=== PATIENT | female | born 1960 | race Caucasian/White ===

== ENCOUNTER → 2019-06-16 16:15 | Outpatient (CLI) | payer BC, SELFPAY ==
--- NOTE | 2019-06-16 | DI.MG.S_ITS ---
BILATERAL DIGITAL SCREENING MAMMOGRAM 3D/2D WITH CAD: 06/16/2019 CLINICAL: Routine screening. Comparison is made to exams dated: 10/07/2017 mammogram, 08/29/2015 mammogram, and 02/27/2012 mammogram - [facility]. The tissue of both breasts is heterogeneously dense. This may lower the sensitivity of mammography. Current study was also evaluated with a Computer Aided Detection (CAD) system. There is a biopsy clip in the left breast. No significant masses, calcifications, or other findings are seen in either breast. There has been no significant interval change. IMPRESSION: NEGATIVE There is no mammographic evidence of malignancy. A 1 year screening mammogram is recommended. This exam was interpreted at Station ID: [id number]. NOTE: For mammograms, a report in lay terms will be sent to the patient. Approximately 15% of breast malignancies will not be visualized mammographically. In the management of a palpable breast mass, a negative mammogram must not discourage biopsy of a clinically suspicious lesion. Electronically Signed By: Curry taylor/ekaterina:06/16/2019 17:32:24 copy to: Matthew Apodaca letter sent: Normal Exam ACR BI-RADS Category 1: Negative [id number]
== END ==
PROVIDERS: Visit Provider Family Medicine
DX: Z12.31 Encounter for screening mammogram for malignant neoplasm of breast (principal)
CPT/HCPCS: 77063; 77067

== ENCOUNTER → 2019-06-23 12:43 | Outpatient (CLI) | payer BC, SELFPAY | PROVIDERS: Referring Provider Physician Assistant Medical | DX: M85.852 Other specified disorders of bone density and structure, left thigh (principal); Z78.0 Asymptomatic menopausal state | CPT/HCPCS: 77080 ==

== ENCOUNTER 2019-09-01 10:30 | Outpatient (RCR) | payer BC, SELFPAY ==
--- NOTE | 2019-07-21 16:33 | PT.OIE ---
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) Other symptoms and signs involving the musculoskeletal system (07/21/19) Past Medical History (Last Updated 06/16/19 @ 14:56 by Zack Drew MD) DANIA (stress urinary incontinence, female) (Acute) Urge incontinence of urine (Acute) Past Surgical History (Last Reviewed 06/16/19 @ 14:53 by Zack Drew MD) History of third molar tooth extraction Status post dilation and curettage Status post knee surgery Status post knee surgery Status post ovarian cystectomy Visit Care Team Role Provider Type Zack Drew MD Attending Provider Physician Primary Care Provider Specialty: HAIRSPRING I INSPECTOR Address: [address] [place] [address] Email: [email or web address] Physical Therapy Initial Evaluation PT-OP-A Visit Information Start: 07/20/19 18:05 Freq: Status: Active Protocol: Document 07/21/19 08:58 LRN (Rec: 07/21/19 09:58 LRN [id number]) Out-Patient Physical Therapy Visit Information Visit Information Visit Type Initial Evaluation Visit Note I/S limited to 7 visits (6 allowed after today) Visit Start Time 08:59 Visit Stop Time 09:56 Total Visit Minutes 57 Visit Number 1 Number of PAINTER SPRAY Visits 0 Evaluation Information Evaluation Date 07/21/19 Precautions Precautions Allergic to something on tape, possible latex allergy. Planned R TKA 08/19/19 Hypothyroid PT-OP-B Current Condition Start: 07/20/19 18:05 Freq: Status: Active Protocol: Document 07/21/19 08:58 LRN (Rec: 07/21/19 09:58 LRN [id number]) Current Condition History of Current Condition Onset Date ~2 yrs ago Current Complaints Urgency, can't hold. Worst upon waking, noticed it more w /sitting work. History of Current Condition Pt being referred for stress incontinence. Pt reports that she can't make it to [place] comfortably and must stop 1-2 times to use the bathroom. Flying to [place] in a private plane, she has to make 2 stops to get there. She is now taking Oxybutynin (5mg) and finds it is helpful. Pt reports having a chronic cough . Future Testing and Treatments Planned Urine check 07/23/19 for planned R TKA surgery. Developmental History Developmental History Was working [employer] and noticed increased urinary symptoms at that time. Was doing more sitting. Not retired or working at this time. Pt has had 2 children over 20 years ago. Her first child resulted in vaginal tearing and the second child was delivered 1 week early without full release of placenta; therefore she had a D&C 6 weeks after delivery. Her 1st child was 9#10oz, 2nd child 8#14 oz. Treatment Goals Patient/Caregiver Goals Pt goal is not not have urgency and to be able to control her continence with the urgency. Prior Functional Status Baseline Function- ADL's Independent Baseline Function- Mobility Independent Baseline Function- Other Could travel 1.5 hrs comfortably. Waking 0-1 time at nighttime and was able to maintain continence upon waking. Current Functional Impairments (Reported) Functional Limitations- ADL's Travelling 30-40 minutes max prior to urgency. At home urinates every hr. Functional Limitations- Other Can comfortably travel 30-40 minutes before needing to urinate. Unable to maintain continence with a strong urge. Waking 2x in middle of the night without medication, with meds not waking at nighttime. With medication, upon waking doesn't have problem getting to bathroom but has urge. Personal Factors Other Personal Factors That May Effect Surgery for R TKA 08/19/19 Therapy/Recovery scheduled. PT-OP-C Subjective Start: 07/20/19 18:05 Freq: Status: Active Protocol: Document 07/21/19 08:58 LRN (Rec: 07/21/19 09:58 LRN [id number]) OP-PT Subjective Patient Comments Patient Comments States she is having a R TKA surgery 08/19/19 at [facility]. Patient Questionnaires Pelvic Pain and Urgency/Frequency Patient Symptom Scale Pelvic Pain Score 12 OP-PT Pain Assessment Comments Pain Comments No pain. PT-OP-I Pelvic Floor Start: 07/20/19 18:05 Freq: Status: Active Protocol: Document 07/21/19 08:58 LRN (Rec: 07/21/19 09:58 LRN [id number]) Pelvic Floor Assessment Urine Pelvic Floor Surgery No Urinary Symptoms Urge Sensation,Hesitancy, Incomplete Emptying Leakage Size Large Leakage Cause Cough,Sneeze,Urge Leaks Per Day 2 Voiding Frequency 7 Nocturia 0 Pads Used In 24 Hours 1 Bowel Bowel Symptoms Constipation Other Bowel Symptoms Constipation with Oxybutynin. Eliminates 1x/day or every other day with medication ( previously eliminated 1-2x/day ). Bowel Movement Frequency 1 Pelvic Clock Pelvic Clock 12-3 Atrophy Pelvic Clock 3-6 Atrophy Pelvic Clock 6-9 Atrophy Pelvic Clock 9-12 Atrophy Prolapse Cystocele Grade 2 Rectocele Grade 2 Prolapse Comments Assessed in supine hooklie position. Perineal Descent Resting Absent Bearing Present Contraction Ability Voluntary Contraction Absent Voluntary Relaxation Absent Manual Muscle Testing Left 1 Manual Muscle Testing Right 0 Manual Muscle Testing Anterior 0 Manual Muscle Testing Posterior 0 Muscle Endurance (Seconds) 0 Number of Quick Contractions In 10 0 Seconds Comments Pelvic Floor Comments Pt uses her accessory muscles (gluteal and abdominal) to try and initiate a PF contraction . PT-OP-J Posture/Palpation/Skin Start: 07/20/19 18:05 Freq: Status: Active Protocol: Document 07/21/19 08:58 LRN (Rec: 07/21/19 09:58 LRN [id number]) Posture Evaluation Position Standing Evaluation View All positions Head/C-Spine Posture Forward Head T-Spine Posture Flattened L-Spine Posture Increased Lordosis Scapula Posture (L) Elevated Pelvis Posture Anteriorly Tilted Knee Posture (L) Genu Valgus,(R) Genu Valgus PT-OP-K Range of Motion Start: 07/20/19 18:05 Freq: Status: Active Protocol: Document 07/21/19 08:58 LRN (Rec: 07/21/19 09:58 LRN [id number]) Lumbar Spine Range of Motion Lumbar Spine Active Degrees Testing Position Standing Flexion 105 Extension 20 Rotation Left 40 Rotation Right 45 Hip Goniometric Range of Motion Hip Right Passive Testing Position Supine Abduction 50 Internal Rotation 40 External Rotation 75 Left Passive Testing Position Supine Abduction 50 Internal Rotation 40 External Rotation 90 PT-OP-M Strength Start: 07/20/19 18:05 Freq: Status: Active Protocol: Document 07/21/19 08:58 LRN (Rec: 07/21/19 09:58 LRN [id number]) Trunk Strength Trunk Manual Muscle Testing Testing Position Sitting Rotation Left 4 Good Rotation Right 4 Good Hip Strength Hip Manual Muscle Testing Right Flexion (L2) 4+ Good+ Extension (S1) 5 Normal Abduction 5 Normal Adduction 5 Normal External Rotation 3+ Fair+ Internal Rotation 5 Normal Left Flexion (L2) 5 Normal Extension (S1) 3+ Fair+ Abduction 5 Normal Adduction 3 Fair External Rotation 4+ Good+ Internal Rotation 5 Normal PT-OP-Q Treatments Start: 07/20/19 18:05 Freq: Status: Active Protocol: Document 07/21/19 08:58 LRN (Rec: 07/21/19 13:04 LRN [id number]) Self-Care/Home Management Treatment Education Patient Education Home Exercise Program Other Education Discussed use of Bladder Diary and I/S pt in use. Activities Self-Care/Home Management Activities Discussed at length her pending R TKA surgery planned and visits available per her insurance limitations and options of care. PT-OP-T Assessment and Plan Start: 07/20/19 18:05 Freq: Status: Active Protocol: Document 07/21/19 08:58 LRN (Rec: 07/21/19 09:58 LRN [id number]) Physical Therapy Assessment Rehab Potential Rehabilitation Potential Excellent Evaluation Complexity Number of Personal Factors/Comorbidities 1-2 Number of Body Systems Impaired 3 Clinical Presentation at Evaluation Evolving Impairments Impairments Posture,ROM,Strength Other Concerns Barriers to Rehabilitation R TKA surgery scheduled for . Pt is limited with PT visits with therapy visits planned for s/p TKA rehab. Goals Six Impairment Constipation with voiding sometimes every other day. Short Term Goal (STG) Pt will be educated in improved voiding techniques and proper bowel care. STG Duration 1 visit Five Impairment Pt voiding 7 times a day. Fpc Goal (LTG) Decrease urinary voiding to 5- 6 times per day. LTG Duration 10/19/19 Four Impairment Cystocele/Rectocele Grade 2 with Weakness of PF strength rated 0/5 Short Term Goal (STG) Improve awareness of being able to perform a PF contraction. STG Duration 1 visit Business Information Analyst Goal (LTG) Pt will be able to perform a PF contraction with a strength no less than 3/5. LTG Duration 10/19/19 Three Impairment Pt has severe urgency leading to urinary leakage. Fpc Goal (LTG) Pt will be able to identify an urge that she can delay in order to prevent urinary leakage. LTG Duration 10/19/19 Two Impairment Pt lacks urinary continence in the presence of a strong urge . Short Term Goal (STG) Pt will be educated in urinary delay technique and educated in how to retrain her bladder to avoid leakage in the presence of a strong urge. STG Duration 1 visit Business Information Analyst Goal (LTG) Pt will be able to maintain continence in the presence of a stonge urge and avoid urinary leakage when attempting to go to the bathroom. LTG Duration 10/19/19 One Impairment Pt lacks self care HEP Short Term Goal (STG) Pt will be independent in a progressive self care HEP that she can do during the first 2 months of her R TKA rehabilitation program. STG Duration 1 visits Assessment Summary Assessment Pt presents with stress incontinence, and what could also be urge incontinence that has been managed with medication. The pt appears to have a mild cystocele and rectocele exacerbated by weakness of the PF. She uses her substitute muscles to try and elicit a PF contraction, but no significant contraction is noted. Additionally, constipation that she feels started with the use of the Oxybutynin may exacerbate her prolapse condition. The pt is under an insurance constraint , limiting her to a total of 6 more visits, which she hopes to use for her R TKA rehabilitation, but would like a PF rehabilitation program she can do at home until the start of the new year. The pt would benefit from skilled physical therapy to improve her PF strength to minimize urinary leakage with stress to the PF and with a strong urge . The pt also hope to be weaned off her medication while remaining continent. Her rehabilitation is expected to be prolonged due to her pending R TKA surgery. Physical Therapy Plan Frequency and Duration Frequency of Treatment 1x/Week Plan of Care Start Date 07/21/19 Plan of Care End Date 10/19/19 Therapeutic Interventions Therapeutic Interventions Home Exercise Program,Joint Mobilizations,Manual Therapy, Neuromuscular Re-education, Patient/Caregiver Education, Self-Care/Home Management,Soft Tissue Mobilization, Therapeutic Exercises Modalities Biofeedback,Cold Pack/Ice Massage,Electric Stimulation Next Visit Focus/Plan Next Note Type Treatment Note Next Visit Plan Review Bladder Diary and make changes as appropriate. Focus of therapy is on setting pt on self care program for next 2 months in order for the pt to have rehabilitation after her R TKA. Educate pt in Urinary delay technique, assess pt per EMG Biofeedback and education in the use of Pathway STM-10 and form for home rental. Educate pt in assisted elimination technique for BM and discuss diet/ fluids intake. Pt to then return after the new year to continue PF rehabilitation for a 7-8 week program.
--- NOTE | 2019-08-07 14:41 | PT.OTN ---
Current Diagnoses Muscle weakness (generalized) (08/07/19) Mixed incontinence (08/07/19) Dysplasia of vagina, unspecified (08/07/19) Other symptoms and signs involving the musculoskeletal system (08/07/19) Physical Therapy Treatment Note PT-OP-A Visit Information Start: 07/20/19 18:05 Freq: Status: Active Protocol: Document 08/07/19 10:33 LRN (Rec: 08/07/19 11:28 LRN [id number]) Out-Patient Physical Therapy Visit Information Visit Information Visit Type Treatment Note Visit Note 5 visits remaining Visit Start Time 10:33 Visit Stop Time 11:27 Total Visit Minutes 54 Visit Number 2 Number of SOCIAL SERVICE TECHNICIAN Visits 0 Evaluation Information Evaluation Date 07/21/19 Precautions Precautions Allergic to something on tape, possible latex allergy. Planned R TKA 08/19/19 Hypothyroid PT-OP-B Current Condition Start: 07/20/19 18:05 Freq: Status: Active Protocol: Document 07/21/19 08:58 LRN (Rec: 07/21/19 09:58 LRN [id number]) Current Condition History of Current Condition Onset Date ~2 yrs ago Current Complaints Urgency, can't hold. Worst upon waking, noticed it more w /sitting work. History of Current Condition Pt being referred for stress incontinence. Pt reports that she can't make it to [place] comfortably and must stop 1-2 times to use the bathroom. Flying to [place] in a private plane, she has to make 2 stops to get there. She is now taking Oxybutynin (5mg) and finds it is helpful. Pt reports having a chronic cough . Future Testing and Treatments Planned Urine check 07/23/19 for planned R TKA surgery. Developmental History Developmental History Was working [employer] and noticed increased urinary symptoms at that time. Was doing more sitting. Not retired or working at this time. Pt has had 2 children over 20 years ago. Her first child resulted in vaginal tearing and the second child was delivered 1 week early without full release of placenta; therefore she had a D&C 6 weeks after delivery. Her 1st child was 9#10oz, 2nd child 8#14 oz. Treatment Goals Patient/Caregiver Goals Pt goal is not not have urgency and to be able to control her continence with the urgency. Prior Functional Status Baseline Function- ADL's Independent Baseline Function- Mobility Independent Baseline Function- Other Could travel 1.5 hrs comfortably. Waking 0-1 time at nighttime and was able to maintain continence upon waking. Current Functional Impairments (Reported) Functional Limitations- ADL's Travelling 30-40 minutes max prior to urgency. At home urinates every hr. Functional Limitations- Other Can comfortably travel 30-40 minutes before needing to urinate. Unable to maintain continence with a strong urge. Waking 2x in middle of the night without medication, with meds not waking at nighttime. With medication, upon waking doesn't have problem getting to bathroom but has urge. Personal Factors Other Personal Factors That May Effect Surgery for R TKA 08/19/19 Therapy/Recovery scheduled. PT-OP-C Subjective Start: 07/20/19 18:05 Freq: Status: Active Protocol: Document 07/21/19 08:58 LRN (Rec: 07/21/19 09:58 LRN [id number]) OP-PT Subjective Patient Comments Patient Comments States she is having a R TKA surgery 08/19/19 at [facility]. Patient Questionnaires Pelvic Pain and Urgency/Frequency Patient Symptom Scale Pelvic Pain Score 12 OP-PT Pain Assessment Comments Pain Comments No pain. PT-OP-I Pelvic Floor Start: 07/20/19 18:05 Freq: Status: Active Protocol: Document 07/21/19 08:58 LRN (Rec: 07/21/19 09:58 LRN [id number]) Pelvic Floor Assessment Urine Pelvic Floor Surgery No Urinary Symptoms Urge Sensation,Hesitancy, Incomplete Emptying Leakage Size Large Leakage Cause Cough,Sneeze,Urge Leaks Per Day 2 Voiding Frequency 7 Nocturia 0 Pads Used In 24 Hours 1 Bowel Bowel Symptoms Constipation Other Bowel Symptoms Constipation with Oxybutynin. Eliminates 1x/day or every other day with medication ( previously eliminated 1-2x/day ). Bowel Movement Frequency 1 Pelvic Clock Pelvic Clock 12-3 Atrophy Pelvic Clock 3-6 Atrophy Pelvic Clock 6-9 Atrophy Pelvic Clock 9-12 Atrophy Prolapse Cystocele Grade 2 Rectocele Grade 2 Prolapse Comments Assessed in supine hooklie position. Perineal Descent Resting Absent Bearing Present Contraction Ability Voluntary Contraction Absent Voluntary Relaxation Absent Manual Muscle Testing Left 1 Manual Muscle Testing Right 0 Manual Muscle Testing Anterior 0 Manual Muscle Testing Posterior 0 Muscle Endurance (Seconds) 0 Number of Quick Contractions In 10 0 Seconds Comments Pelvic Floor Comments Pt uses her accessory muscles (gluteal and abdominal) to try and initiate a PF contraction . PT-OP-J Posture/Palpation/Skin Start: 07/20/19 18:05 Freq: Status: Active Protocol: Document 07/21/19 08:58 LRN (Rec: 07/21/19 09:58 LRN [id number]) Posture Evaluation Position Standing Evaluation View All positions Head/C-Spine Posture Forward Head T-Spine Posture Flattened L-Spine Posture Increased Lordosis Scapula Posture (L) Elevated Pelvis Posture Anteriorly Tilted Knee Posture (L) Genu Valgus,(R) Genu Valgus PT-OP-K Range of Motion Start: 07/20/19 18:05 Freq: Status: Active Protocol: Document 07/21/19 08:58 LRN (Rec: 07/21/19 09:58 LRN [id number]) Lumbar Spine Range of Motion Lumbar Spine Active Degrees Testing Position Standing Flexion 105 Extension 20 Rotation Left 40 Rotation Right 45 Hip Goniometric Range of Motion Hip Right Passive Testing Position Supine Abduction 50 Internal Rotation 40 External Rotation 75 Left Passive Testing Position Supine Abduction 50 Internal Rotation 40 External Rotation 90 PT-OP-M Strength Start: 07/20/19 18:05 Freq: Status: Active Protocol: Document 07/21/19 08:58 LRN (Rec: 07/21/19 09:58 LRN [id number]) Trunk Strength Trunk Manual Muscle Testing Testing Position Sitting Rotation Left 4 Good Rotation Right 4 Good Hip Strength Hip Manual Muscle Testing Right Flexion (L2) 4+ Good+ Extension (S1) 5 Normal Abduction 5 Normal Adduction 5 Normal External Rotation 3+ Fair+ Internal Rotation 5 Normal Left Flexion (L2) 5 Normal Extension (S1) 3+ Fair+ Abduction 5 Normal Adduction 3 Fair External Rotation 4+ Good+ Internal Rotation 5 Normal PT-OP-Q Treatments Start: 07/20/19 18:05 Freq: Status: Active Protocol: Document 08/07/19 10:33 LRN (Rec: 08/07/19 11:28 LRN [id number]) Therapeutic Exercises Supine Exercises Kegel w/biofeedback Supine Exercise Name Quick Flicks & Long holds. Equipment Used Bolster & Biofeedback Reps/Minutes 15' Comments Extra time to position pt to prevent electrode from being expelled LE Roll in/out Supine Exercise Name LE roll in/out w/deep breathing & with Kegel Reps/Minutes 5' Deep Breathing Supine Exercise Name Deep breathing Reps/Minutes 3' Self-Care/Home Management Treatment Education Other Education Reviewed, discussed & educated pt in changes to self care. Issued & reviewed handout Foods to Avoid, and educated pt in pelvic anatomy including internal organs. Activities Self-Care/Home Management Activities Discussed, issued and reviewed Deep breathing & Bowel simulation massage. PT-OP-T Assessment and Plan Start: 07/20/19 18:05 Freq: Status: Active Protocol: Document 08/07/19 10:33 LRN (Rec: 08/07/19 11:28 LRN [id number]) Physical Therapy Assessment Assessment Summary Assessment There is a very high contraction with release of PF contraction, probably the electrode moving from bulging at abdomen during contraction phase. The pt shows very little substitution from the gluteal and hip AD muscles. Physical Therapy Plan Frequency and Duration Frequency of Treatment 1x/Week Plan of Care Start Date 07/21/19 Plan of Care End Date 10/19/19 Next Visit Focus/Plan Next Note Type Treatment Note Next Visit Plan Focus on setting pt on self care program in 5 visits or less for next 2 months in order for the pt to have rehabilitation after her R TKA . Educate pt in Urinary delay technique, and education in the use of Pathway STM-10 and home rental use. Get pt to perform a proper Kegel before DC if possible. Pt to then return after the new year to continue PF rehabilitation for a 7-8 week program.
--- NOTE | 2019-08-18 12:00 | PT.OTN ---
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 Visit Start Time 10:35 Visit Stop Time 11:25 Total Visit Minutes 50 Visit Number 3 Number of AVIATION TECHNICIAN Visits 0 Evaluation Information Evaluation Date 07/21/19 Precautions Precautions Allergic to something on tape, possible latex allergy. Planned R TKA 08/19/19 Hypothyroid PT-OP-B Current Condition Start: 07/20/19 18:05 Freq: Status: Active Protocol: Document 07/21/19 08:58 LRN (Rec: 07/21/19 09:58 LRN [id number]) Current Condition History of Current Condition Onset Date ~2 yrs ago Current Complaints Urgency, can't hold. Worst upon waking, noticed it more w /sitting work. History of Current Condition Pt being referred for stress incontinence. Pt reports that she can't make it to [place] comfortably and must stop 1-2 times to use the bathroom. Flying to [place] in a private plane, she has to make 2 stops to get there. She is now taking Oxybutynin (5mg) and finds it is helpful. Pt reports having a chronic cough . Future Testing and Treatments Planned Urine check 07/23/19 for planned R TKA surgery. Developmental History Developmental History Was working [employer] and noticed increased urinary symptoms at that time. Was doing more sitting. Not retired or working at this time. Pt has had 2 children over 20 years ago. Her first child resulted in vaginal tearing and the second child was delivered 1 week early without full release of placenta; therefore she had a D&C 6 weeks after delivery. Her 1st child was 9#10oz, 2nd child 8#14 oz. Treatment Goals Patient/Caregiver Goals Pt goal is not not have urgency and to be able to control her continence with the urgency. Prior Functional Status Baseline Function- ADL's Independent Baseline Function- Mobility Independent Baseline Function- Other Could travel 1.5 hrs comfortably. Waking 0-1 time at nighttime and was able to maintain continence upon waking. Current Functional Impairments (Reported) Functional Limitations- ADL's Travelling 30-40 minutes max prior to urgency. At home urinates every hr. Functional Limitations- Other Can comfortably travel 30-40 minutes before needing to urinate. Unable to maintain continence with a strong urge. Waking 2x in middle of the night without medication, with meds not waking at nighttime. With medication, upon waking doesn't have problem getting to bathroom but has urge. Personal Factors Other Personal Factors That May Effect Surgery for R TKA 08/19/19 Therapy/Recovery scheduled. PT-OP-C Subjective Start: 07/20/19 18:05 Freq: Status: Active Protocol: Document 08/18/19 10:35 LRN (Rec: 08/18/19 11:59 LRN [id number]) OP-PT Subjective Patient Comments Patient Comments She reports stopping of urinary medication without telling Dr. Drew. Anxious about having R TKA tomorrow as day surgery. She will be having outpt PT for the knee and is agreeable to put PF PT on hold 1 week after TKA surgery. PT-OP-I Pelvic Floor Start: 07/20/19 18:05 Freq: Status: Active Protocol: Document 07/21/19 08:58 LRN (Rec: 07/21/19 09:58 LRN [id number]) Pelvic Floor Assessment Urine Pelvic Floor Surgery No Urinary Symptoms Urge Sensation,Hesitancy, Incomplete Emptying Leakage Size Large Leakage Cause Cough,Sneeze,Urge Leaks Per Day 2 Voiding Frequency 7 Nocturia 0 Pads Used In 24 Hours 1 Bowel Bowel Symptoms Constipation Other Bowel Symptoms Constipation with Oxybutynin. Eliminates 1x/day or every other day with medication ( previously eliminated 1-2x/day ). Bowel Movement Frequency 1 Pelvic Clock Pelvic Clock 12-3 Atrophy Pelvic Clock 3-6 Atrophy Pelvic Clock 6-9 Atrophy Pelvic Clock 9-12 Atrophy Prolapse Cystocele Grade 2 Rectocele Grade 2 Prolapse Comments Assessed in supine hooklie position. Perineal Descent Resting Absent Bearing Present Contraction Ability Voluntary Contraction Absent Voluntary Relaxation Absent Manual Muscle Testing Left 1 Manual Muscle Testing Right 0 Manual Muscle Testing Anterior 0 Manual Muscle Testing Posterior 0 Muscle Endurance (Seconds) 0 Number of Quick Contractions In 10 0 Seconds Comments Pelvic Floor Comments Pt uses her accessory muscles (gluteal and abdominal) to try and initiate a PF contraction . PT-OP-J Posture/Palpation/Skin Start: 07/20/19 18:05 Freq: Status: Active Protocol: Document 07/21/19 08:58 LRN (Rec: 07/21/19 09:58 LRN [id number]) Posture Evaluation Position Standing Evaluation View All positions Head/C-Spine Posture Forward Head T-Spine Posture Flattened L-Spine Posture Increased Lordosis Scapula Posture (L) Elevated Pelvis Posture Anteriorly Tilted Knee Posture (L) Genu Valgus,(R) Genu Valgus PT-OP-K Range of Motion Start: 07/20/19 18:05 Freq: Status: Active Protocol: Document 07/21/19 08:58 LRN (Rec: 07/21/19 09:58 LRN [id number]) Lumbar Spine Range of Motion Lumbar Spine Active Degrees Testing Position Standing Flexion 105 Extension 20 Rotation Left 40 Rotation Right 45 Hip Goniometric Range of Motion Hip Right Passive Testing Position Supine Abduction 50 Internal Rotation 40 External Rotation 75 Left Passive Testing Position Supine Abduction 50 Internal Rotation 40 External Rotation 90 PT-OP-M Strength Start: 07/20/19 18:05 Freq: Status: Active Protocol: Document 07/21/19 08:58 LRN (Rec: 07/21/19 09:58 LRN [id number]) Trunk Strength Trunk Manual Muscle Testing Testing Position Sitting Rotation Left 4 Good Rotation Right 4 Good Hip Strength Hip Manual Muscle Testing Right Flexion (L2) 4+ Good+ Extension (S1) 5 Normal Abduction 5 Normal Adduction 5 Normal External Rotation 3+ Fair+ Internal Rotation 5 Normal Left Flexion (L2) 5 Normal Extension (S1) 3+ Fair+ Abduction 5 Normal Adduction 3 Fair External Rotation 4+ Good+ Internal Rotation 5 Normal PT-OP-Q Treatments Start: 07/20/19 18:05 Freq: Status: Active Protocol: Document 08/18/19 10:35 LRN (Rec: 08/18/19 11:59 LRN [id number]) Therapeutic Exercises Supine Exercises Bowel massage Supine Exercise Name Reviewed LE Roll in/out Supine Exercise Name LE roll in/out w/deep breathing & with Kegel Reps/Minutes 4' Deep Breathing Supine Exercise Name Deep breathing Reps/Minutes 3' Self-Care/Home Management Treatment Education Patient Education Home Exercise Program Other Education 10' Discussed and used Pelvic model for anatomy training and system training (piston effect) for impact on breathing. Educated pt in proper clothing to minimize pressure on pelvic organs. Activities Self-Care/Home Management Activities 10' Discussed, issued and reviewed LE roll in/out, urinary delay technique with handouts issued. PT-OP-R Modalities Start: 07/20/19 18:05 Freq: Status: Active Protocol: Document 08/18/19 10:35 LRN (Rec: 08/18/19 11:59 LRN [id number]) Electric Stimulation Electric Stimulation Pathway Stim Body Location Vaginal Duration (Minutes) 10 Intensity 17 Frequency 50 Contraction Type Co-Contraction Comments Hooklie with feet on bolster Towel roll holding electrode Electrode rotated CW 90 deg's. PT-OP-T Assessment and Plan Start: 07/20/19 18:05 Freq: Status: Active Protocol: Document 08/18/19 10:35 LRN (Rec: 08/18/19 11:59 LRN [id number]) Physical Therapy Assessment Assessment Summary Assessment Pt receptive to all information given. Good coordination of LE roll in/out ex except breathing was slightly fast. The pt was not able to get full awareness of a PF contraction because of only sensing an initial contraction posteriorly and to a lesser extent on lateral mascorro. Further awareness training is needed. Physical Therapy Plan Frequency and Duration Frequency of Treatment 1x/Week Plan of Care Start Date 07/21/19 Plan of Care End Date 10/19/19 Next Visit Focus/Plan Next Note Type Treatment Note Next Visit Plan Focus on setting pt on self care program in 3 visits or less for this month in order for the pt to have R TKA rehabilitation. Review urinary delay technique, and education in the use of Pathway STM-10 for possible home rental use. Get pt to perform a proper Kegel before DC. Pt plans to return after the new year to continue PF rehabilitation for a 7-8 week program.
--- NOTE | 2019-09-01 15:44 | PT.OTN ---
Current Diagnoses Muscle weakness (generalized) (09/01/19) Mixed incontinence (09/01/19) Dysplasia of vagina, unspecified (09/01/19) Other symptoms and signs involving the musculoskeletal system (09/01/19) Physical Therapy Treatment Note PT-OP-A Visit Information Start: 07/20/19 18:05 Freq: Status: Active Protocol: Document 09/01/19 10:37 LRN (Rec: 09/01/19 15:44 LRN [id number]) Out-Patient Physical Therapy Visit Information Visit Information Visit Type Treatment Note Visit Note PO R TKA surgery 08/19/19. 2 visits remain, 1 visit used for pre surgery PT visit. Visit Start Time 10:38 Visit Stop Time 11:22 Total Visit Minutes 44 Visit Number 4 Number of CRUCIBLE PACKER Visits 0 Evaluation Information Evaluation Date 07/21/19 Precautions Precautions Allergic to something on tape, possible latex allergy. Planned R TKA 08/19/19 Hypothyroid PT-OP-B Current Condition Start: 07/20/19 18:05 Freq: Status: Active Protocol: Document 07/21/19 08:58 LRN (Rec: 07/21/19 09:58 LRN [id number]) Current Condition History of Current Condition Onset Date ~2 yrs ago Current Complaints Urgency, can't hold. Worst upon waking, noticed it more w /sitting work. History of Current Condition Pt being referred for stress incontinence. Pt reports that she can't make it to [place] comfortably and must stop 1-2 times to use the bathroom. Flying to [place] in a private plane, she has to make 2 stops to get there. She is now taking Oxybutynin (5mg) and finds it is helpful. Pt reports having a chronic cough . Future Testing and Treatments Planned Urine check 07/23/19 for planned R TKA surgery. Developmental History Developmental History Was working [employer] and noticed increased urinary symptoms at that time. Was doing more sitting. Not retired or working at this time. Pt has had 2 children over 20 years ago. Her first child resulted in vaginal tearing and the second child was delivered 1 week early without full release of placenta; therefore she had a D&C 6 weeks after delivery. Her 1st child was 9#10oz, 2nd child 8#14 oz. Treatment Goals Patient/Caregiver Goals Pt goal is not not have urgency and to be able to control her continence with the urgency. Prior Functional Status Baseline Function- ADL's Independent Baseline Function- Mobility Independent Baseline Function- Other Could travel 1.5 hrs comfortably. Waking 0-1 time at nighttime and was able to maintain continence upon waking. Current Functional Impairments (Reported) Functional Limitations- ADL's Travelling 30-40 minutes max prior to urgency. At home urinates every hr. Functional Limitations- Other Can comfortably travel 30-40 minutes before needing to urinate. Unable to maintain continence with a strong urge. Waking 2x in middle of the night without medication, with meds not waking at nighttime. With medication, upon waking doesn't have problem getting to bathroom but has urge. Personal Factors Other Personal Factors That May Effect Surgery for R TKA 08/19/19 Therapy/Recovery scheduled. PT-OP-C Subjective Start: 07/20/19 18:05 Freq: Status: Active Protocol: Document 09/01/19 10:37 LRN (Rec: 09/01/19 15:44 LRN [id number]) OP-PT Subjective Patient Comments Patient Comments Quit using Oxybutin and is using something else that is too drying, but hasn't started it because too much going on since the TKA surgery. Did have a couple of accidents trying to get to the bathroom and couldn't because of the surgery and her immobility. Has been focusing on the bladder retraining and found it does help talking to the bladder, the quick squeezes doesn't help as much. Having R TKA surgery somewhere else. PT-OP-I Pelvic Floor Start: 07/20/19 18:05 Freq: Status: Active Protocol: Document 07/21/19 08:58 LRN (Rec: 07/21/19 09:58 LRN [id number]) Pelvic Floor Assessment Urine Pelvic Floor Surgery No Urinary Symptoms Urge Sensation,Hesitancy, Incomplete Emptying Leakage Size Large Leakage Cause Cough,Sneeze,Urge Leaks Per Day 2 Voiding Frequency 7 Nocturia 0 Pads Used In 24 Hours 1 Bowel Bowel Symptoms Constipation Other Bowel Symptoms Constipation with Oxybutynin. Eliminates 1x/day or every other day with medication ( previously eliminated 1-2x/day ). Bowel Movement Frequency 1 Pelvic Clock Pelvic Clock 12-3 Atrophy Pelvic Clock 3-6 Atrophy Pelvic Clock 6-9 Atrophy Pelvic Clock 9-12 Atrophy Prolapse Cystocele Grade 2 Rectocele Grade 2 Prolapse Comments Assessed in supine hooklie position. Perineal Descent Resting Absent Bearing Present Contraction Ability Voluntary Contraction Absent Voluntary Relaxation Absent Manual Muscle Testing Left 1 Manual Muscle Testing Right 0 Manual Muscle Testing Anterior 0 Manual Muscle Testing Posterior 0 Muscle Endurance (Seconds) 0 Number of Quick Contractions In 10 0 Seconds Comments Pelvic Floor Comments Pt uses her accessory muscles (gluteal and abdominal) to try and initiate a PF contraction . PT-OP-J Posture/Palpation/Skin Start: 07/20/19 18:05 Freq: Status: Active Protocol: Document 07/21/19 08:58 LRN (Rec: 07/21/19 09:58 LRN [id number]) Posture Evaluation Position Standing Evaluation View All positions Head/C-Spine Posture Forward Head T-Spine Posture Flattened L-Spine Posture Increased Lordosis Scapula Posture (L) Elevated Pelvis Posture Anteriorly Tilted Knee Posture (L) Genu Valgus,(R) Genu Valgus PT-OP-K Range of Motion Start: 07/20/19 18:05 Freq: Status: Active Protocol: Document 07/21/19 08:58 LRN (Rec: 07/21/19 09:58 LRN [id number]) Lumbar Spine Range of Motion Lumbar Spine Active Degrees Testing Position Standing Flexion 105 Extension 20 Rotation Left 40 Rotation Right 45 Hip Goniometric Range of Motion Hip Right Passive Testing Position Supine Abduction 50 Internal Rotation 40 External Rotation 75 Left Passive Testing Position Supine Abduction 50 Internal Rotation 40 External Rotation 90 PT-OP-M Strength Start: 07/20/19 18:05 Freq: Status: Active Protocol: Document 07/21/19 08:58 LRN (Rec: 07/21/19 09:58 LRN [id number]) Trunk Strength Trunk Manual Muscle Testing Testing Position Sitting Rotation Left 4 Good Rotation Right 4 Good Hip Strength Hip Manual Muscle Testing Right Flexion (L2) 4+ Good+ Extension (S1) 5 Normal Abduction 5 Normal Adduction 5 Normal External Rotation 3+ Fair+ Internal Rotation 5 Normal Left Flexion (L2) 5 Normal Extension (S1) 3+ Fair+ Abduction 5 Normal Adduction 3 Fair External Rotation 4+ Good+ Internal Rotation 5 Normal PT-OP-Q Treatments Start: 07/20/19 18:05 Freq: Status: Active Protocol: Document 09/01/19 10:37 LRN (Rec: 09/01/19 15:44 LRN [id number]) Therapeutic Exercises Supine Exercises Kegel w/biofeedback Supine Exercise Name Kegels in isolation of accessory muscles. Equipment Used Legs on bolster. Reps/Minutes 10' LE Roll in/out Supine Exercise Name LE roll in/out w/deep breathing & with Kegel Reps/Minutes 4' Deep Breathing Supine Exercise Name Deep breathing Reps/Minutes 2' Neuro Re-Education Treatment Other Activities PF contraction training Details E-Stim Training for awareness & proper contraction 10:20 cycle 50 pps. Reps/Duration 25' Comments Intensity 26 > 27 found with continuous mode. Extra time taken to assist pt on table & to find level of intensity for awareness training using settings of continuous and intermittent of 10:20 on:off. Self-Care/Home Management Treatment Education Other Education Issued & Reviewed anatomy handout for relation between pelvic organs. Reinforced importance to prevent constipation. PT-OP-R Modalities Start: 07/20/19 18:05 Freq: Status: Active Protocol: Document 08/18/19 10:35 LRN (Rec: 08/18/19 11:59 LRN [id number]) Electric Stimulation Electric Stimulation Pathway Stim Body Location Vaginal Duration (Minutes) 10 Intensity 17 Frequency 50 Contraction Type Co-Contraction Comments Hooklie with feet on bolster Towel roll holding electrode Electrode rotated CW 90 deg's. PT-OP-T Assessment and Plan Start: 07/20/19 18:05 Freq: Status: Active Protocol: Document 09/01/19 10:37 LRN (Rec: 09/01/19 15:44 LRN [id number]) Physical Therapy Assessment Goals Six Impairment Constipation with voiding sometimes every other day. Short Term Goal (STG) Pt will be educated in improved voiding techniques and proper bowel care. STG Duration 1 visit Five Impairment Pt voiding 7 times a day. Underwriting Service Representative Goal (LTG) Decrease urinary voiding to 5- 6 times per day. LTG Duration 10/19/19 Four Impairment Cystocele/Rectocele Grade 2 with Weakness of PF strength rated 0/5 Short Term Goal (STG) Improve awareness of being able to perform a PF contraction. STG Duration 1 visit Halfway Goal (LTG) Pt will be able to perform a PF contraction with a strength no less than 3/5. LTG Duration 10/19/19 Three Impairment Pt has severe urgency leading to urinary leakage. Underwriting Service Representative Goal (LTG) Pt will be able to identify an urge that she can delay in order to prevent urinary leakage. LTG Duration 10/19/19 Two Impairment Pt lacks urinary continence in the presence of a strong urge . Short Term Goal (STG) Pt will be educated in urinary delay technique and educated in how to retrain her bladder to avoid leakage in the presence of a strong urge. STG Duration 1 visit Underwriting Service Representative Goal (LTG) Pt will be able to maintain continence in the presence of a strong urge and avoid urinary leakage when attempting to go to the bathroom. LTG Duration 10/19/19 One Impairment Pt lacks self care HEP Short Term Goal (STG) Pt will be independent in a progressive self care HEP that she can do during the first 2 months of her R TKA rehabilitation program. STG Duration 1 visits. Assessment Summary Assessment Pt able to feel a PF contraction with use of Pathway STM-10 unit and vaginal electrode (intensity 27). She appears to have a good understanding of her current HEP. Pt would benefit from one more PT treatment to teach progressive strengthening ex's of PF and TA prior to DC. Hopefully pt will be able to perform a proper Kegel before DC. Her level of constipation appears to have decreased with a decrease in caffeine intake. Physical Therapy Plan Frequency and Duration Frequency of Treatment 1x/Week Plan of Care Start Date 07/21/19 Plan of Care End Date 10/19/19 Next Visit Focus/Plan Next Note Type Treatment Note Next Visit Plan Assess progress to goals. Pt to be seen for one more visit to place on home E-stim unit if pt decides to use at home. Add and review LE roll in/ outs with T-Band and ball. Educate pt in progression of HEP of roll in/outs and TA strengthening. Teach pt use of Pathway STM-10 for possible home rental use. If possible , get pt to perform a proper Kegel before DC. Pt plans to return after the new year to continue PF rehabilitation for a 7-8 week program.
--- NOTE | 2020-06-14 16:50 | PT-OP ANOTE ---
Unable to reach patient by phone due to full mailbox; therefore pt will be discharged from therapy.
--- NOTE | 2020-06-14 16:57 | PT.OPDS ---
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 Visit Number Visit Number 4 Discharge Summary PT-OP-B Current Condition Start: 07/20/19 18:05 Freq: Status: Active Protocol: Document 07/21/19 08:58 LRN (Rec: 07/21/19 09:58 LRN [id number]) Current Condition History of Current Condition Onset Date ~2 yrs ago Current Complaints Urgency, can't hold. Worst upon waking, noticed it more w /sitting work. History of Current Condition Pt being referred for stress incontinence. Pt reports that she can't make it to [place] comfortably and must stop 1-2 times to use the bathroom. Flying to [place] in a private plane, she has to make 2 stops to get there. She is now taking Oxybutynin (5mg) and finds it is helpful. Pt reports having a chronic cough . Future Testing and Treatments Planned Urine check 07/23/19 for planned R TKA surgery. Developmental History Developmental History Was working [employer] and noticed increased urinary symptoms at that time. Was doing more sitting. Not retired or working at this time. Pt has had 2 children over 20 years ago. Her first child resulted in vaginal tearing and the second child was delivered 1 week early without full release of placenta; therefore she had a D&C 6 weeks after delivery. Her 1st child was 9#10oz, 2nd child 8#14 oz. Treatment Goals Patient/Caregiver Goals Pt goal is not not have urgency and to be able to control her continence with the urgency. Prior Functional Status Baseline Function- ADL's Independent Baseline Function- Mobility Independent Baseline Function- Other Could travel 1.5 hrs comfortably. Waking 0-1 time at nighttime and was able to maintain continence upon waking. Current Functional Impairments (Reported) Functional Limitations- ADL's Travelling 30-40 minutes max prior to urgency. At home urinates every hr. Functional Limitations- Other Can comfortably travel 30-40 minutes before needing to urinate. Unable to maintain continence with a strong urge. Waking 2x in middle of the night without medication, with meds not waking at nighttime. With medication, upon waking doesn't have problem getting to bathroom but has urge. Personal Factors Other Personal Factors That May Effect Surgery for R TKA 08/19/19 Therapy/Recovery scheduled. PT-OP-C Subjective Start: 07/20/19 18:05 Freq: Status: Active Protocol: Document 09/01/19 10:37 LRN (Rec: 09/01/19 15:44 LRN [id number]) OP-PT Subjective Patient Comments Patient Comments Quit using Oxybutin and is using something else that is too drying, but hasn't started it because too much going on since the TKA surgery. Did have a couple of accidents trying to get to the bathroom and couldn't because of the surgery and her immobility. Has been focusing on the bladder retraining and found it does help talking to the bladder, the quick squeezes doesn't help as much. Having R TKA surgery somewhere else. PT-OP-I Pelvic Floor Start: 07/20/19 18:05 Freq: Status: Active Protocol: Document 07/21/19 08:58 LRN (Rec: 07/21/19 09:58 LRN [id number]) Pelvic Floor Assessment Urine Pelvic Floor Surgery No Urinary Symptoms Urge Sensation,Hesitancy, Incomplete Emptying Leakage Size Large Leakage Cause Cough,Sneeze,Urge Leaks Per Day 2 Voiding Frequency 7 Nocturia 0 Pads Used In 24 Hours 1 Bowel Bowel Symptoms Constipation Other Bowel Symptoms Constipation with Oxybutynin. Eliminates 1x/day or every other day with medication ( previously eliminated 1-2x/day ). Bowel Movement Frequency 1 Pelvic Clock Pelvic Clock 12-3 Atrophy Pelvic Clock 3-6 Atrophy Pelvic Clock 6-9 Atrophy Pelvic Clock 9-12 Atrophy Prolapse Cystocele Grade 2 Rectocele Grade 2 Prolapse Comments Assessed in supine hooklie position. Perineal Descent Resting Absent Bearing Present Contraction Ability Voluntary Contraction Absent Voluntary Relaxation Absent Manual Muscle Testing Left 1 Manual Muscle Testing Right 0 Manual Muscle Testing Anterior 0 Manual Muscle Testing Posterior 0 Muscle Endurance (Seconds) 0 Number of Quick Contractions In 10 0 Seconds Comments Pelvic Floor Comments Pt uses her accessory muscles (gluteal and abdominal) to try and initiate a PF contraction . PT-OP-J Posture/Palpation/Skin Start: 07/20/19 18:05 Freq: Status: Active Protocol: Document 07/21/19 08:58 LRN (Rec: 07/21/19 09:58 LRN [id number]) Posture Evaluation Position Standing Evaluation View All positions Head/C-Spine Posture Forward Head T-Spine Posture Flattened L-Spine Posture Increased Lordosis Scapula Posture (L) Elevated Pelvis Posture Anteriorly Tilted Knee Posture (L) Genu Valgus,(R) Genu Valgus PT-OP-K Range of Motion Start: 07/20/19 18:05 Freq: Status: Active Protocol: Document 07/21/19 08:58 LRN (Rec: 07/21/19 09:58 LRN [id number]) Lumbar Spine Range of Motion Lumbar Spine Active Degrees Testing Position Standing Flexion 105 Extension 20 Rotation Left 40 Rotation Right 45 Hip Goniometric Range of Motion Hip Right Passive Testing Position Supine Abduction 50 Internal Rotation 40 External Rotation 75 Left Passive Testing Position Supine Abduction 50 Internal Rotation 40 External Rotation 90 PT-OP-M Strength Start: 07/20/19 18:05 Freq: Status: Active Protocol: Document 07/21/19 08:58 LRN (Rec: 07/21/19 09:58 LRN [id number]) Trunk Strength Trunk Manual Muscle Testing Testing Position Sitting Rotation Left 4 Good Rotation Right 4 Good Hip Strength Hip Manual Muscle Testing Right Flexion (L2) 4+ Good+ Extension (S1) 5 Normal Abduction 5 Normal Adduction 5 Normal External Rotation 3+ Fair+ Internal Rotation 5 Normal Left Flexion (L2) 5 Normal Extension (S1) 3+ Fair+ Abduction 5 Normal Adduction 3 Fair External Rotation 4+ Good+ Internal Rotation 5 Normal PT-OP-T Assessment and Plan Start: 07/20/19 18:05 Freq: Status: Active Protocol: Document 06/14/20 16:50 LRN (Rec: 06/14/20 16:56 LRN [id number]) Physical Therapy Assessment Goals Six Impairment Constipation with voiding sometimes every other day. Short Term Goal (STG) Pt will be educated in improved voiding techniques and proper bowel care. STG Duration 1 visit (Pt unavailable for final assessment) Five Impairment Pt voiding 7 times a day. Mcc Goal (LTG) Decrease urinary voiding to 5- 6 times per day. LTG Duration 10/19/19 (Pt unavailable for final assessment) Four Impairment Cystocele/Rectocele Grade 2 with Weakness of PF strength rated 0/5 Short Term Goal (STG) Improve awareness of being able to perform a PF contraction. STG Duration 1 visit (Pt unavailable for final assessment) Aircraft Restorer Goal (LTG) Pt will be able to perform a PF contraction with a strength no less than 3/5. LTG Duration 10/19/19 (Pt unavailable for final assessment) Three Impairment Pt has severe urgency leading to urinary leakage. Mcc Goal (LTG) Pt will be able to identify an urge that she can delay in order to prevent urinary leakage. LTG Duration 10/19/19 (Pt unavailable for final assessment) Two Impairment Pt lacks urinary continence in the presence of a strong urge . Short Term Goal (STG) Pt will be educated in urinary delay technique and educated in how to retrain her bladder to avoid leakage in the presence of a strong urge. STG Duration 1 visit (Pt unavailable for final assessment) Aircraft Restorer Goal (LTG) Pt will be able to maintain continence in the presence of a strong urge and avoid urinary leakage when attempting to go to the bathroom. LTG Duration 10/19/19 One Impairment Pt lacks self care HEP Short Term Goal (STG) Pt will be independent in a progressive self care HEP that she can do during the first 2 months of her R TKA rehabilitation program. STG Duration 1 visits. (Pt unavailable for final assessment) Assessment Summary Assessment Pt was last seen 09/01/2019, and at that time was able to feel a PF contraction with use of [employer] STM-10 unit and vaginal electrode (intensity 27). She appeared to have a good understanding of her current HEP. Pt would have benefitted from one more PT treatment to teach progressive strengthening ex's of PF and TA prior to DC. At her last visit it was uncertain whether she was able to perform a proper Kegel. Her level of constipation appeared to have decreased with a decrease in caffeine intake. The pt did not return for a final visit; therefore I was not able to do a final assessment. Pt is being discharged due to lack of attendance. Physical Therapy Plan Discharge Physical Therapy Discharge Reasons No Longer Attending PT Discharge Comments Pt is being discharged due to lack of attendance. Pt did not return for her final scheduled therapy session. Thank you for your referral.
== END 2020-06-17 08:53 | disposition home or self-care (01) ==
LOC: PHYS 10:30
DX: N89.3 Dysplasia of vagina, unspecified (principal); N39.46 Mixed incontinence; M62.81 Muscle weakness (generalized); R29.898 Other symptoms and signs involving the musculoskeletal system
CPT/HCPCS: 97032; 97110; 97112; 97162; 97535

== ENCOUNTER 2019-09-20 00:02 | Emergency (ER) | payer BC, SELFPAY ==
--- NOTE | 2019-09-20 00:04 | ED_ITS ---
HPI - Allergic Reaction General Chief complaint: Allergic Reaction Stated complaint: allergic reaction possibly to food cant talk Time Seen by Provider: 09/20/19 00:03 Source: patient and family Mode of arrival: Ambulatory Limitations: no limitations History of Present Illness HPI narrative: 59-year-old female nonsmoker with history of hypothyroid presents with a probable allergic reaction that's been worsening over the course of the night, it likely started after exposure to almond butter. Patient complains of some difficulty in breathing and a fullness in her throat. She denies any rash or hives. She took some Benadryl at home with minimal improvement. She has had increasing frequency of allergic type reactions ever since she had a right knee replacement about 1 month ago. She had been taking oxycodone up until , her orthopedist encouraged her to stop taking narcotics in the event that she was having reactions to that. MD complaint: allergic reaction Onset (ago): hour(s) Exposure: food Symptoms: lip swelling and difficulty swallowing Severity: moderate Treatment prior to arrival: benadryl Previous Allergic Reaction History: other Related Data Home Medications Medication Instructions Recorded Confirmed MULTIVITAMIN (One Daily 1 tab PO Q DAY #0 12/31/11 08/18/19 Multivitamin) clobetasol 0.05 % topical ointment 1 applictn TOP DAILY 06/16/19 08/18/19 levothyroxine 175 mcg tablet 175 mcg PO DAILY 06/16/19 08/18/19 loratadine 10 mg disintegrating 10 mg PO DAILY PRN tab 06/16/19 08/18/19 tablet rosuvastatin 10 mg tablet 10 mg PO DAILY 06/16/19 08/18/19 Previous Rx's Medication Instructions Recorded estradiol 10 mcg vaginal tablet 10 mcg VAG .1XW #30 tab 06/16/19 oxybutynin chloride 5 mg tablet 5 mg PO BID #60 tab 06/16/19 tolterodine 4 mg capsule,extended 4 mg PO DAILY #60 cap 08/18/19 release 24 hr epinephrine [EpiPen 2-Jos] 0.3 mg IM Q15M PRN #2 each 09/20/19 prednisone 40 mg PO DAILY 4 Days tab 09/20/19 Allergies Allergy/AdvReac Type Severity Reaction Status Date / Time adhesive [ADHESIVE] AdvReac Mild rash Verified 08/18/19 14:49 Review of Systems Constitutional Constitutional: Denies chills, Denies fatigue, Denies fever(s), Denies frequent falls, Denies lethargy and Denies weakness Eyes Eyes: Denies change in vision, Denies eye discharge, Denies irritation and Den ies loss of vision ENT Ears, Nose, Mouth, and Throat: Denies change in voice, Denies dizziness, Denies neck pain, Denies sore throat and Reports throat swelling Cardiovascular Cardiovascular: Denies chest pain, Denies irregular heart rhythm, Denies lightheadedness, Denies palpitations, Denies dyspnea, Denies dyspnea on exertion and Denies orthopnea Respiratory Respiratory: Denies cough, Denies dyspnea, Denies dyspnea on exertion and Denies wheezing Gastrointestinal Gastrointestinal: Denies abdominal pain, Denies change in bowel habits, Denies diarrhea, Denies nausea and Denies vomiting Genitourinary Genitourinary: Denies hematuria, Denies flank pain, Denies urinary incontinence and Denies urinary urgency Musculoskeletal Musculoskeletal: Denies back pain, Denies muscle weakness, Denies neck pain, Den ies numbness and Denies tingling Integumentary/Breasts Skin/Breast: Denies pruritus, Denies erythema, Denies rash and Denies wounds Neurologic Neurologic: Denies behavioral changes, Denies confusion, Denies dizziness, Denies frequent falls, Denies loss of vision, Denies numbness, Denies tingling and Denies weakness Psychiatric Psychiatric: Denies anxiety, Denies behavioral changes, Denies confusion, Denies depression, Denies homicidal ideation and Denies suicidal ideation Endocrine Endocrine: Denies fatigue, Denies flushing and Denies palpitations Hematologic/Lymphatic Hematologic/Lymphatic: Denies easy bruising Allergic/Immunologic Allergic/Immunologic: Denies urticaria, Reports throat swelling and Denies wheezing Patient History Medical History DANIA (stress urinary incontinence, female) (Acute) Urge incontinence of urine (Acute) Surgical History History of third molar tooth extraction Status post dilation and curettage Status post knee surgery Status post knee surgery Status post ovarian cystectomy Family History Brother Age: 51 Irritable bowel syndrome, unspecified type Child Age: 21 JRA (juvenile rheumatoid arthritis) Father Age: 81 Benign neoplasm of brain, unspecified brain region Clotting disorder Grandmother Heart disease Mental health problem Cerebrovascular accident (CVA), unspecified mechanism Mother Age: 77 Malignant neoplasm of lung, unspecified laterality, unspecified part of lung Essential hypertension Grandmother Emphysema, unspecified Social History Smoking Status: Never smoker Smoking Status: Never smoker Exam Narrative Exam Narrative: GENERAL: [59] year old patient appears stated age. Well- nourished, well-developed patient, in moderate distress. Anxious, difficulty with speech HEAD: Atraumatic. Normocephalic. EYES: Pupils equal round and reactive. Extraocular motions intact. No scleral icterus. No injection or drainage. ENT: Nose without bleeding, purulent drainage. Throat without erythema, tonsillar hypertrophy or exudate. Airway patent. NECK: Trachea midline. Non tender CARDIOVASCULAR: Regular rate and rhythm without murmurs, gallops, or rubs. RESPIRATORY: Clear to auscultation. Breath sounds equal bilaterally. No wheezes, rales, or rhonchi. GASTROINTESTINAL: Abdomen soft, non-tender, nondistended. EXTREMITIES: No edema or joint tenderness. BACK: Nontender without deformity or crepitance. No flank tenderness. NEURO: AOx3. SKIN: No rash or erythema of visible areas, nor to care Initial Vital Signs Initial Vital Signs: Vital Signs Temperature 97.9 F 09/20/19 00:08 Pulse Rate 76 09/20/19 00:08 Respiratory Rate 18 09/20/19 00:08 Blood Pressure 169/97 H 09/20/19 00:08 Pulse Oximetry 100 09/20/19 00:08 Course Course Course Narrative: Patient with allergic reaction as profound improvement after above-stated therapies. She was observed for 2 hours and had no return of symptoms. She and demonstrate understanding of diagnosis and plan and agree with this plan. They had questions answered to their apparent satisfaction and understand return precautions Orders Ordered: Discontinued Medications Albuterol/Ipratropium (Duoneb) 3 ml INH NOW ONE Stop: 09/20/19 00:49 Last Admin: 09/20/19 00:56 Dose: 3 ml Documented by: ADI Diphenhydramine HCl (Benadryl) 25 mg IV NOW ONE Stop: 09/20/19 00:09 Last Admin: 09/20/19 00:17 Dose: 25 mg Documented by: KAR Epinephrine HCl (Adrenalin) 0.5 mg IM NOW ONE Stop: 09/20/19 00:09 Last Admin: 09/20/19 00:12 Dose: 0.5 mg Documented by: KAR Famotidine (Pepcid) 20 mg in 50 mls @ 200 mls/hr IV NOW ONE Stop: 09/20/19 00:22 Last Infusion: 09/20/19 00:30 Dose: 0 mls/hr Documented by: Admin: 09/20/19 00:15 Dose: 200 mls/hr Documented by: KAR Sodium Chloride (Normal Saline 0.9%) 1,000 mls @ 1,000 mls/hr IV BOLUS ONE Stop: 09/20/19 01:07 Last Infusion: 09/20/19 01:00 Dose: 0 mls/hr Documented by: Admin: 09/20/19 00:14 Dose: 1,000 mls/hr Documented by: KAR Methylprednisolone (Solu-Medrol 125 Mg Vial) 125 mg IV NOW ONE Stop: 09/20/19 00:09 Last Admin: 09/20/19 00:14 Dose: 125 mg Documented by: KAR Vital Signs Vital signs: Vital Signs - 8 hr 09/20/19 00:08 09/20/19 00:10 09/20/19 00:13 Temperature 97.9 F 97.9 F Pulse Rate 76 76 Respiratory Rate 18 18 Blood Pressure 169/97 H Blood Pressure [Left Arm] 169/97 H Pulse Oximetry 100 100 09/20/19 00:57 09/20/19 02:30 Temperature Pulse Rate 89 81 Respiratory Rate 12 16 Blood Pressure 119/62 Blood Pressure [Left Arm] Pulse Oximetry 99 96 Discharge Plan Departure Patient Disposition: Home Clinical Impression: Allergic reaction Qualifiers: Encounter type: initial encounter Qualified Code(s): T78.40XA - Allergy, unspecified, initial encounter Discharge Date/Time: 09/20/19 02:30 Instructions: DI for General Allergic Reactions Activity Restrictions/Additional Instructions: *You have been diagnosed with [allergic reaction] *What to do: *Take medications as directed: Including [id number] antihistamines such as Benadryl or Zyrtec as well as histamine 2 blockers such as Pepcid or Zantac *Follow up with your primary care provider in 2-3 days, call for an appointment. Let them know you were seen in the Emergency Department and that we ask that you be seen in follow up *Return to ER if you should have any new, worsening or concerning symptoms Prescriptions: New epinephrine [EpiPen 2-Jos] 0.3 mg/0.3 mL auto-injector 0.3 mg IM Q15M PRN (Reason: anaphylaxis) Qty: 2 RF: 0 prednisone 20 mg tablet 40 mg PO DAILY 4 Days RF: 0 No Action MULTIVITAMIN (One Daily Multivitamin) 1 tab PO Q DAY Qty: 0 RF: 0 rosuvastatin 10 mg tablet 10 mg PO DAILY RF: 0 levothyroxine [Synthroid] 175 mcg tablet 175 mcg PO DAILY RF: 0 loratadine [Claritin RediTabs] 10 mg tablet,disintegrating 10 mg PO DAILY PRNRF: 0 clobetasol 0.05 % ointment 1 applictn TOP DAILY RF: 0 estradiol [Vagifem] 10 mcg tablet 10 mcg VAG .1XW Qty: 30 RF: 3 oxybutynin chloride 5 mg tablet 5 mg PO BID Qty: 60 RF: 3 tolterodine [Detrol LA] 4 mg capsule,extended release 24hr 4 mg PO DAILY Qty: 60 RF: 0 Referrals: Zack Drew MD [Primary Care Provider] -
[2019-09-20 00:08] VITALS: BP 169/97; PULSE 76; RESP 18; TEMP 36.6; O2SAT 100; BMI 32.9
[2019-09-20 00:10] VITALS: BP 169/97; PULSE 76; RESP 18; O2SAT 100
[2019-09-20] MEDS: EPINEPHrine 1 MG/ML AMPUL 0.5 MG IM (00:12)
[2019-09-20 00:13] VITALS: TEMP 36.6
[2019-09-20] MEDS: methylPREDNISolone 125 MG/2 ML VIAL IV (00:14)
[2019-09-20] MEDS: SODIUM CHLORIDE 0.9% 1,000 ML 1000 ML IV (00:14)
[2019-09-20] MEDS: FAMOTIDINE 20 MG/50 ML PIGGYBACK 200 MG IV (00:15)
[2019-09-20] MEDS: diphenhydrAMINE 50 MG/ML VIAL 25 MG IV (00:17)
[2019-09-20] MEDS: ALBUTEROL/IPRATROPIUM 3 ML AMPUL INH (00:56)
[2019-09-20 00:57] VITALS: PULSE 89; RESP 12; O2SAT 99
[2019-09-20 02:30] VITALS: BP 119/62; PULSE 81; RESP 16; O2SAT 96
== END 2019-09-20 02:30 | disposition home or self-care (01) ==
PROVIDERS: Emergency Provider Emergency Medicine
DX: T78.40XA Allergy, unspecified, initial encounter (principal)
CPT/HCPCS: 36415; 94640; 96361; 96372; 96374; 96375; 99284; J0171; J1200; J2930

== ENCOUNTER → 2022-11-27 14:48 | Outpatient (CLI) | payer OTHER, SELFPAY ==
--- NOTE | 2022-11-27 14:52 | DI.US.S_ITS ---
PROCEDURE: US PELVIC COMPLETE INDICATIONS: vaginal bleeding TECHNIQUE: Real-time scanning was performed of the pelvic organs, with image documentation. Additional endovaginal scanning was necessary due to incomplete visualization of the adnexal and endometrial structures by transabdominal scanning. COMPARISON: [facility], , PELVIC COMPLETE, 12/13/2006, 13:39. FINDINGS: Uterus: Uterus measures 6.4 x 4.0 x 4.3 cm. The myometrium is heterogeneous. The endometrium measures 7 mm combined thickness. Multiple uterine fibroids are noted. There is a right anterior subserosal fibroid measuring 1.9 x 1.7 x 1.7 cm. There is a left posterior intramural fibroid measuring 1.2 x 1.2 x 1.0 cm. There is a midline posterior subserosal fibroid measuring 1.6 x 1.4 x 1.7 cm. Ovaries: The right ovary measures 2.0 x 1.0 x 1.3 cm, with a calculated ovarian volume of 1.5 cc. The left ovary was not visualized on this exam. Less than 12 follicles seen on the right. No adnexal masses are seen. Other: No pathologic free abdominal or pelvic fluid. IMPRESSION: Heterogeneous uterine echotexture with multiple uterine fibroids. There is thickened endometrium measuring 7 mm. In this postmenopausal patient with vaginal bleeding, recommend further evaluation with endometrial biopsy. Normal appearance of the right ovary. Left ovary was not visualized on this exam. We strive to produce accurate, complete, and clear reports of imaging services. To assist us in improving patient care, this report was composed using standard report templates and voice recognition software. Therefore, it may contain abnormal punctuation, insertions and/or omissions. Occasional wrong-word or sound-alike substitutions may occur. Though we review the report and make efforts to correct it, we do recommend that the report be read carefully in proper context to recognize any text inaccuracies. Dictated by: Mike Coyle M.D. on 11/27/2022 at 20:01 Approved by: Mike Coyle M.D. on 11/27/2022 at 20:04
== END ==
PROVIDERS: PCP Family Medicine; Referring Provider Obstetrics & Gynecology; Visit Provider Obstetrics & Gynecology
DX: N93.9 Abnormal uterine and vaginal bleeding, unspecified (principal); D25.1 Intramural leiomyoma of uterus; D25.2 Subserosal leiomyoma of uterus; R93.89 Abnormal findings on diagnostic imaging of other specified body structures
CPT/HCPCS: 76830; 76856